=== PATIENT | female | born 1940 | race Caucasian/White ===

== ENCOUNTER 2016-10-05 10:22 | Outpatient (CLI) | payer OTHER, MEDICARE ==
--- NOTE | 2016-10-05 21:29 | DIAGNOSTIC IMAGING REPORT ---
REFERRING PHYSICIAN/PROVIDER: Lisseth Jo MD CONSULTING [employer] DERRICKMAN AND RIGGER: Denilson Nicholson MD PROCEDURE: 2D echo, M-mode and complete color and flow Doppler interrogation TECHNICAL QUALITY: Technically difficult INDICATION: MITRAL REGURGITATION;DIASTOLIC DYSFUNCTION;HTN INTERPRETATIONS: CHAMBERS: LEFT ATRIUM: Mild left atrial enlargement. LEFT VENTRICLE: Concentric left ventricular hypertrophy. Normal left ventricular size and systolic function, EF 70%. Impaired relaxation consistent with grade I diastolic dysfunction. RIGHT ATRIUM: Normal right atrial size. RIGHT VENTRICLE: Normal right ventricular size and systolic function. VALVES: All valves nonrheumatic unless otherwise indicated. AORTIC VALVE: Trileaflet aortic valve. Mild aortic sclerosis without stenosis. Moderate aortic regurgitation, PHT 375 msec. MITRAL VALVE: Trace mitral regurgitation. No mitral stenosis. TRICUSPID VALVE: Mild tricuspid regurgitation. Estimated pulmonary artery systolic pressure is 23 mmHg. PULMONIC VALVE: No pulmonic regurgitation. MISCELLANEOUS: Normal aorta dimension. HEMODYNAMICS: Normal IVC size. >50% inspiratory collapse. CVP 3 mmHg. IMPRESSION: 1. Concentric left ventricular hypertrophy. Normal left ventricular size and systolic function, EF 70%. No wall motion abnormalities. 2. Grade I diastolic function. 3. Moderate aortic regurgitation. 4. Trace mitral regurgitation. 5. Normal right ventricular size and systolic function. 6. Estimated pulmonary artery systolic pressure is 23 mmHg. 7. Compared with prior echocardiogram 12/14/14 degree of aortic regurgitation was mild-moderate, now moderate. The degree of mitral regurgitation is now trace. There is now grade I diastolic dysfunction, previously grade II diastolic dysfunction.
== END 2016-10-05 23:00 ==
LOC: US SRH 10:22
DX: I34.0 Nonrheumatic mitral (valve) insufficiency (principal); I51.89 Other ill-defined heart diseases; I10 Essential (primary) hypertension